=== PATIENT | female | born 1940 | race Caucasian/White ===

== ENCOUNTER 2023-07-07 14:37 | Emergency (ER) | payer MEDICARE, BC ==
[2023-07-07] MEDS ORDERED: Sodium Chloride 0.9% 10 ML Syringe FLUSH PRN (14:47)
[2023-07-07 14:54] LABS: BASOPHILS PERCENT AUTO 0.3 % (0.0-1.0); EOSINOPHILS PERCENT AUTO 0.3 % (1.0-3.0); HEMATOCRIT 39.3 % (37.0-47.0); HEMOGLOBIN 12.5 g/dL (12.0-16.0); LYMPHOCYTES PERCENT AUTO 24.4 % (20.5-50.1); MEAN CORPUSCULAR HEMOGLOBIN 28.8 pg (27.0-34.0); MEAN CORPUSCULAR HGB CONC 31.8 g/dL (33.0-35.0); MEAN CORPUSCULAR VOLUME 90.6 fL (80-100); MONOCYTES PERCENT AUTO 19.3 % (2-8); NEUTROPHILS PERCENT AUTO 55.7 % (42.2-75.2); PLATELET COUNT,PLT 181 10^3/uL (150-450); RED BLOOD CELL COUNT 4.34 10^6/uL (4.2-5.4)
[2023-07-07 15:09] LABS: PROTHROMBIN TIME 9.8 SEC (9.0-12.0)
[2023-07-07 15:11] LABS: APPEARANCE,URINE CLEAR (CLEAR); BILIRUBIN,URINE NEGATIVE (NEGATIVE); COLOR,URINE YELLOW (YELLOW); GLUCOSE,URINE NEGATIVE (NEGATIVE); KETONES,URINE NEGATIVE (NEGATIVE); LEUKOCYTE ESTERASE,URINE NEGATIVE (NEGATIVE); NITRITE,URINE NEGATIVE (NEGATIVE); OCCULT BLOOD,URINE TRACE-INTACT (NEGATIVE); PROTEIN,URINE NEGATIVE (NEGATIVE); UROBILINOGEN,URINE 0.2 mg/dL (0.2-1.0)
[2023-07-07 15:14] LABS: ALANINE AMINOTRANSFERASE,ALT 25 U/L (14-59); ALBUMIN 3.5 g/dL (3.4-5.0); ALKALINE PHOSPHATASE 82 U/L (46-116); ANION GAP 9.3 mEq/L (7-13); ASPARTATE AMNIOTRANSFERASE,AST 26 U/L (15-37); BILIRUBIN TOTAL 0.5 mg/dL (0.2-1.0); BLOOD UREA NITROGEN,BUN 26 mg/dL (7-18); BUN/CREATININE RATIO 18.7 (No establ ref range); C-REACTIVE PROTEIN 3.01 ng/dL (<=0.50); CALCIUM 8.6 mg/dL (8.5-10.1); CARBON DIOXIDE,CO2 31 mmol/L (21-32); CHLORIDE,CL 98 mmol/L (98-107); CREATININE 1.39 mg/dL (0.55-1.02); ESTIMATED GFR 37 mL/min (>=60); ETHANOL BLOOD MEDICAL < 3 mg/dL (0); GLUCOSE RANDOM 107 mg/dL (70-99); MAGNESIUM 1.7 mg/dL (1.8-2.4); POTASSIUM,K 3.3 mmol/L (3.5-5.1); PROTEIN TOTAL,TP 7.1 g/dL (6.4-8.2); SODIUM,NA 135 mmol/L (136-145)
[2023-07-07 15:17] LABS: LACTIC ACID 1.3 mmol/L (0.4-2.0)
[2023-07-07] MEDS ORDERED: Sodium Chloride 0.9% 1,000 ML IV ONE (15:17)
[2023-07-07] MEDS ORDERED: Potassium Chloride 10 MEQ Tab.ER PO ONE (15:18)
[2023-07-07 15:25] LABS: RBC,URINE 0-5 /HPF (0-5); WBC,URINE NOT SEEN /HPF (0-5/HPF)
[2023-07-07 15:26] LABS: BACTERIA,URINE FEW /HPF (0-FEW/HPF); EPITHELIAL CELLS,URINE OCCASIONAL /HPF (NOT SEEN); MUCUS,URINE RARE /LPF (NOT SEEN)
[2023-07-07 15:38] LABS: INFLUENZA A NAA NEGATIVE (NEGATIVE); INFLUENZA B NAA NEGATIVE (NEGATIVE)
[2023-07-07 15:40] LABS: CORONAVIRUS COVID-19 NAA POSITIVE (NEGATIVE)
== END 2023-07-07 16:11 | disposition home or self-care (01) ==
LOC: DL.ED 14:37
DX: U07.1 COVID-19 (principal); H02.401 Unspecified ptosis of right eyelid; I10 Essential (primary) hypertension
CPT/HCPCS: 0240U; 36415; 70450; 80053; 80307; 81001; 82947; 83605; 83735; 85025; 85610; 86140; 93005; 99284; A9270; J7030; 93010; J3490

== ENCOUNTER → 2023-11-01 | Day surgery (SDC) | payer MEDICARE, BC ==
[~2023-11-01] MED LIST: Midazolam 1 MG/ML 2 ML SDV ONE; fentaNYL 100 MCG/2 ML SDV ONE
[2023-11-01] MEDS: Dextrose 5%-0.45% NaCl 1,000 ML IV SCH (06:41)
[2023-11-01] MEDS: fentaNYL 100 MCG/2 ML SDV IV ONE ×3 (07:29→07:37)
[2023-11-01] MEDS: Midazolam 1 MG/ML 2 ML SDV IV ONE ×5 (07:30→07:46)
== END | disposition home or self-care (01) ==
LOC: DL.ENDO 06:22
PROVIDERS: ATTEND Internal Medicine Gastroenterology
DX: Z12.11 Encounter for screening for malignant neoplasm of colon (principal); K62.1 Rectal polyp; K57.30 Diverticulosis of large intestine without perforation or abscess without bleeding; C82.90 Follicular lymphoma, unspecified, unspecified site; E78.5 Hyperlipidemia, unspecified; M19.90 Unspecified osteoarthritis, unspecified site; I10 Essential (primary) hypertension; Z52.4 Kidney donor
CPT/HCPCS: J2250; J3010; J7042

== ENCOUNTER 2024-03-15 15:26 | Emergency (ER) | payer MEDICARE, BC ==
[2024-03-15 15:50] LABS: BASOPHILS PERCENT AUTO 0.2 % (0.0-1.0); EOSINOPHILS PERCENT AUTO 2.6 % (1.0-3.0); HEMATOCRIT 41.9 % (37.0-47.0); HEMOGLOBIN 13.6 g/dL (12.0-16.0); LYMPHOCYTES PERCENT AUTO 16.8 % (20.5-50.1); MEAN CORPUSCULAR HEMOGLOBIN 28.9 pg (27.0-34.0); MEAN CORPUSCULAR HGB CONC 32.5 g/dL (33.0-35.0); MEAN CORPUSCULAR VOLUME 89.1 fL (80-100); MONOCYTES PERCENT AUTO 12.1 % (2-8); NEUTROPHILS PERCENT AUTO 68.3 % (42.2-75.2); PLATELET COUNT,PLT 172 10^3/uL (150-450); WHITE BLOOD CELL COUNT,WBC 4.5 10^3/uL (5.0-10.0)
[2024-03-15 16:14] LABS: A/G RATIO 1.2; ALANINE AMINOTRANSFERASE,ALT 23 U/L (14-59); ALBUMIN 3.9 g/dL (3.4-5.0); ALKALINE PHOSPHATASE 87 U/L (46-116); ANION GAP 9.2 mEq/L (7-13); ASPARTATE AMNIOTRANSFERASE,AST 29 U/L (15-37); BLOOD UREA NITROGEN,BUN 21 mg/dL (7-18); BUN/CREATININE RATIO 17.9 (No establ ref range); CALCIUM 9.5 mg/dL (8.5-10.1); CARBON DIOXIDE,CO2 30 mmol/L (21-32); CHLORIDE,CL 99 mmol/L (98-107); CREATININE 1.17 mg/dL (0.55-1.02); GLUCOSE RANDOM 97 mg/dL (70-99); LIPASE 105 U/L (16-77); MAGNESIUM 1.7 mg/dL (1.8-2.4); POTASSIUM,K 4.2 mmol/L (3.5-5.1); PROTEIN TOTAL,TP 7.2 g/dL (6.4-8.2); SODIUM,NA 134 mmol/L (136-145)
[2024-03-15 16:19] LABS: C-REACTIVE PROTEIN < 0.50 ng/dL (<=0.50); EST CRCL DRUG DOSING (CG) 34.19 mL/min; ESTIMATED GFR 46 mL/min (>=60)
[2024-03-15] MEDS: Sodium Chloride 0.9% 1,000 ML IV ONE (16:37)
[2024-03-15] MEDS: Ketorolac 30 MG/ML SDV IVPUSH ONE (16:37)
[2024-03-15] MEDS: Sodium Chloride 0.9% 10 ML Syringe FLUSH PRN (16:37)
[2024-03-15] MEDS: Iopamidol 612 MG/ML 100 ML Bottle IVPUSH ONE (17:14)
[2024-03-15] MEDS: Orphenadrine 60 MG/2 ML Inj IM ONE (17:58)
== END 2024-03-15 18:04 ==
LOC: DL.ED 15:26
DX: M54.6 Pain in thoracic spine (principal); I10 Essential (primary) hypertension; E78.00 Pure hypercholesterolemia, unspecified; Z86.16 Personal history of COVID-19; Z79.899 Other long term (current) drug therapy
CPT/HCPCS: 36415; 71045; 74177; 80053; 82150; 83690; 83735; 84484; 85025; 86140; 93005; 96361; 96372; 96374; 99284; J1885; J2360; J7030; Q9967; 93010; J3490